=== PATIENT | female | born 1985 | race Caucasian/White ===

== ENCOUNTER → 2022-07-30 09:12 | Outpatient (CLI) | payer OTHER, SELFPAY ==
--- NOTE | ~2022-07-30 | US_ITS ---
EXAMINATION: US abdomen complete DATE: 07/30/2022 09:36 INDICATION: R74.8 - Abnormal levels of other serum enzymes TECHNIQUE: Multiple grayscale and Doppler ultrasound images of the abdomen were obtained. COMPARISON: None available. FINDINGS: The visualized portions of the pancreas are normal. The liver is normal with normal echogen icity and echotexture. No surface nodularity. Normal hepatopetal flow in the main portal vein. Surgic ally absent gallbladder. The common bile duct measures 4 mm. The visualized portions of the aorta and inferior vena cava are normal. The right kidney measures 11.9 x 3.7 x 4.2. The left kidney measures 13.0 x 6.0 x 5.9. The kidneys de monstrate slightly increased parenchymal echogenicity, most notably in the left kidney. There is no h ydronephrosis. The spleen is normal in appearance and measures 11.3 cm. IMPRESSION: Slightly hyperechoic renal parenchyma, which can be seen with medical renal disease in the appropriat e clinical and laboratory context. Cholecystectomy. Otherwise normal abdominal ultrasound findings. Reviewed, dictated and finalized at location K. PRESS OPERATOR IMPRESSION: Slightly hyperechoic renal parenchyma, which can be seen with medical renal dis ease in the appropriate clinical and laboratory context. Cholecystectomy. Other wilder normal abdominal ultrasound findings.
== END ==
PROVIDERS: PCP Family Medicine; Visit Provider Physician Assistant Medical
DX: R74.8 Abnormal levels of other serum enzymes (principal); R93.5 Abnormal findings on diagnostic imaging of other abdominal regions, including retroperitoneum
CPT/HCPCS: 76700